=== PATIENT | female | born 1965 | race Caucasian/White ===

== ENCOUNTER 2021-05-17 08:35 | Inpatient (IN) | payer BC, SELFPAY ==
[2021-05-17] VITALS (18 sets, daily range): BP systolic 107–152; BP diastolic 50–92; PULSE 103–118; RESP 13–28; TEMP 36.4–37.1; O2SAT 94–100; BMI 31.4
--- NOTE | ~2021-05-17 | CT_ITS ---
EXAMINATION: CT brain wo con EXAM DATE: 05/18/2021 10:40 INDICATION: Intractable headache. TECHNIQUE: Spiral CT of the head was performed without contrast. Axial, coronal and sagittal images were reviewed. The dose-length product (DLP) for this examination was 605.33 mGy-cm. The exposure w as tailored according to patient size, and iterative reconstruction (ASIR) was used as additional dos e reduction technique. There is no prior study for comparison. FINDINGS: There is no acute intraparenchymal hemorrhage. No evidence of intraparenchymal brain mass lesion. No evidence of acute infarction. There is no mass effect or midline shift. The ventricles are normal in size. There are no extra-axial collections. There are no acute calvarial fractures. T he orbits are unremarkable. Soft tissue is unremarkable. The visualized sinuses and mastoid air travon ls are well aerated. IMPRESSION: 1. Unremarkable head CT examination. Reviewed, dictated and finalized at location B.
--- NOTE | ~2021-05-17 | XR_ITS ---
EXAMINATION: XR chest 1V portable DATE: 05/17/2021 14:58 INDICATION: Diabetic ketoacidosis presenting with shortness of breath, nausea and vomiting TECHNIQUE: frontal view of the chest was obtained. COMPARISON: None FINDINGS: The lungs are clear with no focal airspace opacities, pulmonary edema, pleural effusion or pneumothor ax. The cardiomediastinal silhouette is normal. Visualized bones and soft tissues are unremarkable. IMPRESSION: 1. No acute cardiopulmonary disease. Reviewed, dictated and finalized at location A.
[2021-05-17 08:58] LABS: Basophils Absolute Auto 0.1 K/mm3 (0.0-0.1); Basophils Percent Auto 0.4 % (0.2-1.2); Hematocrit 53.2 % (37.0-47.0); Hemoglobin 16.7 g/dL (12.0-15.0); Immature Granulocyte Absolute 0.09 K/mm3 (0.00-0.031); Immature Granulocyte Percent A 0.6 % (0-0.5); Lymphocytes Absolute Auto 1.03 K/mm3 (0.9-3.2); Lymphocytes Percent Auto 6.8 % (18.3-44.2); Mean Corpuscular HGB Conc 31.4 g/dl (32-36); Mean Corpuscular Hemoglobin 27.5 pg (26-34); Mean Corpuscular Volume 87.6 fl (80-100); Mean Platelet Volume 10.2 fl (7.4-10.4); Monocytes Absolute Auto 0.5 K/mm3 (0.1-0.6); Neutrophils Absolute Auto 13.5 K/mm3 (1.3-6.7); Neutrophils Percent Auto 89.2 % (45.5-73.1); Platelet Count Result 450 k/mm3 (150-375); Red Blood Count 6.07 M/mm3 (4.2-5.4); Red Cell Distribution Width 14.3 % (11.5-14.5); White Blood Count 15.2 K/mm3 (4.5-10.0)
[2021-05-17 09:19] LABS: Alanine Aminotransferase 32 U/L (4-35); Albumin Level 5.3 g/dL (3.5-5.1); Alkaline Phosphatase 151 U/L (38-126); Anion Gap 32 mmol/L (8-16); Aspartate Amino Transferase 31 U/L (14-36); Bilirubin,Total 0.6 mg/dL (0.2-1.3); Blood Urea Nitrogen 17 mg/dL (7-17); Calcium 9.9 mg/dL (8.4-10.2); Carbon Dioxide 6 mmol/L (22-30); Chloride 104 mmol/L (98-107); Estimated CRCL calculation 71 ml/min; Estimated Glomerular Filt Rate > 60; Glucose 210 mg/dL (65-110); Lipase 70 U/L (23-300); Potassium 4.9 mmol/L (3.4-5.0); Sodium 142 mmol/L (137-145)
[2021-05-17] MEDS: SODIUM CHLORIDE 0.9% IV 1,000 ML 999 ML IV CONT (09:25)
[2021-05-17] MEDS: ONDANSETRON INJ 4 MG/2 ML VIAL IV PUSH (09:25)
--- NOTE | 2021-05-17 09:41 | ED.NAVMDI ---
HPI - Nausea/Vomiting/Diarrhea General Chief complaint: Nausea/Vomiting/Diarrhea Stated complaint: Vomiting Time Seen by Provider: 05/17/21 09:03 Source: patient Mode of arrival: ambulatory Limitations: no limitations History of Present Illness HPI Narrative: Patient is a 56-year-old female complaining of nausea vomiting, nonbilious nonbloody, constant, started earlier this morning. Patient states that she cannot keep anything down. Patient denies any chest pain, shortness of breath, abdominal pain, diarrhea, fever, chills or urinary symptoms. Related Data Allergies Allergy/AdvReac Type Severity Reaction Status Date / Time cefprozil Allergy Unknown unknown Verified 05/17/21 08:50 lisinopril Allergy Unknown Cough Verified 05/17/21 08:50 metronidazole Allergy Unknown nausea Verified 05/17/21 08:50 almond AdvReac Abdominal Verified 05/17/21 08:51 Pain losartan AdvReac cough Verified 05/17/21 08:50 METRONIDAZOLE HCL AdvReac Unknown NAUSEA Uncoded 05/16/21 17:46 Review of Systems Review of Systems: All systems reviewed & are unremarkable except as noted in HPI and below Constitutional: Constitutional: Denies body ache(s), Denies chills, Denies excessive sweating, Denies fatigue, Denies fever(s), Denies headache(s), Denies lethargy, Denies malaise, Denies weakness and Denies weight loss Eyes: Eyes: Denies blurry vision, Denies change in vision and Denies loss of vision ENT: Denies dizziness, Denies ear discharge, Denies headache(s), Denies lip swelling, Denies epistaxis, Denies nasal congestion, Denies neck pain, Denies throat swelling and Denies tongue swelling Cardiovascular: Cardiovascular: Denies chest pain, Denies chest pain at rest, Denies chest pain with activity, Denies diaphoresis, Denies rapid heart rate, Denies edema, Denies irregular heart rhythm, Denies lightheadedness, Denies palpitations, Denies dyspnea and Denies dyspnea on exertion Respiratory: Respiratory: Denies chest congestion, Denies cough, Denies hemoptysis, Denies dyspnea and Denies dyspnea on exertion Gastrointestinal: Gastrointestinal: Denies abdominal pain, Denies melena, Denies hematochezia, Denies diarrhea and Denies hematemesis Musculoskeletal: Musculoskeletal: Denies abnormal gait, Denies deformity, Denies joint swelling, Denies limited range of motion, Denies neck pain and Denies numbness Neurologic: Denies Abnormal speech present, Denies abnormal gait, Denies confusion, Denies dizziness, Denies headache(s), Denies focal weakness, Denies loss of vision, Denies numbness, Denies Other visual disturbances, Denies Sensory deficit (Neuro) and Denies weakness Psychiatric: Psychiatric: Denies confusion, Denies depression, Denies auditory hallucinations, Denies homicidal ideation and Denies suicidal ideation Endocrine: Endocrine: Denies cold intolerance, Denies excessive sweating, Denies fatigue, Denies heat intolerance and Denies palpitations Hematologic/Lymphatic: Hematologic/Lymphatic: Denies easy bleeding and Denies easy bruising Allergic/Immunologic: Allergic/Immunologic: Denies lip swelling, Denies throat swelling and Denies tongue swelling PMFSH Family History Family History Mother Patient's mother is Family history of thyroid disease Family history of pancreatic cancer Father Patient's father is Family history of blood dyscrasia Family history of chronic obstructive pulmonary disease Other Diabetes mellitus Family history of malignant neoplasm of thyroid Social History Social History Smoking status: Never smoker Alcohol intake: current Comments Past medical history: Diabetes Social history: Non-smoker no EtOH or drug use Exam Const: General: cooperative, comfortable, well developed, alert and awake; No confusion Nutritional Appearance: obese Orientation/consciousness: oriented to person, oriente
[2021-05-17 10:01] LABS: Add Urine Microscopic? YES; Appearance Urine Clear (Clear); Bilirubin Urine Negative (Negative); Blood Urine 1+ (Negative); Color Urine Straw (Yellow); Glucose Urine UA 3+ mg/dL (Negative); Ketones Urine 2+ mg/dL (Negative); Leukocyte Esterase Ur Negative LEU/UL (Negative); Mucus Urine Rare /lpf; Nitrate Urine Negative (Negative); Protein Urine 2+ mg/dL (Negative); RBC Urine 0-2 /hpf (0-2); Specific Grav Ur 1.024 (1.001-1.035); Squamous Epithelial Cell Urine Rare /hpf (Few); Urobilinogen Urine Negative mg/dL (<2.0); WBC Urine 0-3 /hpf
[2021-05-17 10:14] LABS: Alveolar/Arterial O2 Gradient 25.2 mmHg; Base Excess ABG -22.5 mEq/l (+/-2.0); Carboxyhemoglobin 0.7 % THb (0-2.0); Fractional Inspired Oxygen 21 %; HCO3 ABG 5.3 mEq/l (22.0-26.0); Methemoglobin ABG 0.4 %THb (0-1.5); Oxygen Content ABG 21.4 %vol (16.0-22.0); Oxygen Saturation ABG 95.6 % (95.0-100.0); Oxyhemoglobin 95.2 % THb (90.0-100.0); Reduced Hemoglobin 3.7 %THb (0-5.0); Total Hemoglobin 15.9 g/dL (12.0-18.0)
[2021-05-17] MEDS: PROMETHAZINE HCL 25 MG/ML AMPUL 12.5 MG IV PUSH (10:15)
[2021-05-17 10:19] LABS: pH ABG 7.088 (7.350-7.450)
[2021-05-17 10:20] LABS: Device ROOM AIR; Modified Allen's Test Pass; Site Drawn RIGHT BRACHIAL
[2021-05-17] MEDS: LACTATED RINGERS 1,000 ML 999 ML IV CONT ×2 (10:43→10:59)
--- NOTE | 2021-05-17 12:06 | ECG_ITS ---
Measurements Intervals [place] Rate: 111 P: 59 W[place]: 138 QRS: 14 QRSD: 98 T: 62 QT: 368 QTc: 501 Interpretive Statements SINUS TACHYCARDIA ATRIAL PREMATURE COMPLEX DELAYED PRECORDIAL R/S TRANSITION CONSIDER INFERIOR INFARCT, AGE INDETERMINATE BASELINE ARTIFACT- II, III, AVR, AVF ABNORMAL ECG Electronically Signed On 05-17-2021 13:10:25 CDT by Kuldeep Haro D.O.
[2021-05-17] MEDS: diphenhydrAMINE HCl INJ 50 MG/ML VIAL 25 MG IV PUSH (12:49)
[2021-05-17] MEDS: METOCLOPRAMIDE HCL INJ 10 MG/2 ML VIAL IV PUSH (12:50)
[2021-05-17 13:04] LABS: Glucose Point of Care 188 mg/dl (65-105)
[2021-05-17] MEDS: LACTATED RINGERS 1,000 ML 200 ML IV CONT (13:39)
[2021-05-17 14:33] LABS: Beta-Hydroxybutyrate/Acetoacetate 8.96 mmol/L (0.02-0.27)
[2021-05-17] MEDS: KETOROLAC 15 MG/ML VIAL (*BKC) IV PUSH (15:09)
[2021-05-17] MEDS: INSULIN HUMAN REGULAR (*BKC) 100 UNITS in SODIUM CHLORIDE 0.9% IV 99 ML IV CONT (15:27)
[2021-05-17] MEDS: KCL 20 MEQ/D5/0.45% SOD CHL 1,000 ML 150 ML IV CONT ×2 (15:30→23:25)
[2021-05-17 15:39] LABS: Glucose Point of Care 182 mg/dl (65-105)
--- NOTE | 2021-05-17 16:04 | PM.IMHP ---
H&P: HPI History of Present Illness Date/Time: 05/17/21 16:05 this is a 56-year-old female patient who came to the emergency room with complaint of nausea, vomiting nonbilious nonbloody constant emesis. This started this morning. The patient stated that she is newly diagnosed diabetic and that she recently was given another medication because her blood sugars have been high recently. The patient stated she could not keep anything down. She also complained of headache. No chest pain shortness of breath no diarrhea. The patient stated that she is having hot cold flashes. Her white count was noted to be 15.2. On her ABGs are pH was 7.088, CO2 was 18, PO2 was 103, bicarb 5.3. Her anion gap was reported as 32. Patient's blood glucose was only 210. Patient's last A1c was noted to be 5.4. Her beta hydroxybutyrate was noted to be 8.96. Patient 2+ ketones 3+ glucose 2+ protein and 1+ blood and urine. Patient was also complaining of some lower back pain prior to coming to the emergency room. Patient's chest x-ray was read as no acute cardiopulmonary disease. Cutting And Splicing Supervisor had been notified but the ED physician. The patient was given Benadryl, Phenergan and Reglan for complaints of headache and the patient stated went away briefly but then came back. She was also given Zofran and IV fluids for the nausea as well. Patient was also given Toradol for the complaints of headache and back pain. Chief Complaint: Nausea vomiting elevated blood sugar Review of Systems Review of Systems: All systems reviewed & are unremarkable except as noted in HPI and below Constitutional: Constitutional: Reports as per HPI and Reports no additional constitutional complaints Eyes: Eyes: Reports as per HPI and Reports no additional eye complaints ENT: Reports system reviewed and no additional complaints, except as documented and Reports Normal hearing present Cardiovascular: Cardiovascular: Reports no additional cardiovascular complaints Respiratory: Respiratory: Reports no additional respiratory complaints and Reports no additional respiratory complaints Gastrointestinal: Gastrointestinal: Reports as per HPI and Reports no additional gastrointestinal complaints Musculoskeletal: Musculoskeletal: Reports no additional musculoskeletal complaints Integumentary/Breasts: Skin/Breast: Reports system reviewed and no additional complaints, except as docu and Reports as per HPI Neurologic: Reports system reviewed and no additional complaints, except as documented, Reports as per HPI and Reports Normal hearing present Psychiatric: Psychiatric: Reports no additional psychiatric complaints and Reports as per HPI Endocrine: Endocrine: Reports no additional endocrine complaints Hematologic/Lymphatic: Hematologic/Lymphatic: Reports no additional hematologic/lymphatic complaints Allergic/Immunologic: Allergic/Immunologic: Reports no additional allergic/immunologic complaints [facility] Past Medical History Medical History (Updated 05/17/21 @ 16:13 by Jud Norwood NP) Essential hypertension Hyperlipidemia Type 2 diabetes mellitus without complications eye exam: no diabetic retinopathy Surgical History Surgical History (Updated 05/17/21 @ 16:12 by Jud Norwood NP) History of appendectomy History of section, classical History of lung biopsy Family History Family History Mother Patient's mother is Family history of thyroid disease Family history of pancreatic cancer Father Patient's father is Family history of blood dyscrasia Family history of chronic obstructive pulmonary disease Other Diabetes mellitus Family history of malignant neoplasm of thyroid Social History Social History (Updated 05/17/21 @ 16:16 by Jud Norwood NP) Social History: The patient is and lives with her . The is a durable power director payment for healthcare. The jhony
[2021-05-17 16:28] LABS: Blood Urea Nitrogen 13 mg/dL (7-17); Carbon Dioxide < 5 mmol/L (22-30); Chloride 114 mmol/L (98-107); Estimated CRCL calculation 80 ml/min; Estimated Glomerular Filt Rate > 60; Glucose 209 mg/dL (65-110); Phosphorus 4.4 mg/dL (2.5-4.5); Sodium 141 mmol/L (137-145)
--- NOTE | 2021-05-17 16:45 | ADMGEN ---
This patient, Adeline Camarena, was admitted to Intensive Care Unit-11. Patient/family oriented to hospital policies and general routines including ID bracelet, bed and alarms, visiting hours, pain management, procedures, bathroom and other care routines, personal items, smoking policy, room service/diet, and visiting hours. Information on how to activate the Rapid Response Team has been discussed. Patient/Family are encouraged to report perceived risks to care and to ask questions if they do not understand what they are told or what they should do.
[2021-05-17 17:28] LABS: Blood Urea Nitrogen 13 mg/dL (7-17); Calcium 8.8 mg/dL (8.4-10.2); Carbon Dioxide < 5 mmol/L (22-30); Chloride 114 mmol/L (98-107); Estimated CRCL calculation 81 ml/min; Estimated Glomerular Filt Rate > 60; Glucose 221 mg/dL (65-110); Magnesium 2.1 mg/dL (1.6-2.3); Phosphorus 3.5 mg/dL (2.5-4.5); Sodium 141 mmol/L (137-145)
[2021-05-17 17:30] LABS: Glucose Point of Care 201 mg/dl (65-105)
[2021-05-17 17:30] LABS: Glucose Point of Care 194 mg/dl (65-105)
[2021-05-17 18:03] LABS: Hemoglobin A1C 10.8 % (<5.7)
[2021-05-17 18:34] LABS: Glucose Point of Care 163 mg/dl (65-105)
[2021-05-17 19:41] LABS: Glucose Point of Care 151 mg/dl (65-105)
[2021-05-17 20:23] LABS: Blood Urea Nitrogen 13 mg/dL (7-17); Calcium 8.4 mg/dL (8.4-10.2); Carbon Dioxide < 5 mmol/L (22-30); Chloride 114 mmol/L (98-107); Estimated CRCL calculation 91 ml/min; Estimated Glomerular Filt Rate > 60; Glucose 153 mg/dL (65-110); Potassium 4.7 mmol/L (3.4-5.0); Sodium 143 mmol/L (137-145)
[2021-05-17 20:39] LABS: Glucose Point of Care 146 mg/dl (65-105)
[2021-05-17 21:38] LABS: Glucose Point of Care 140 mg/dl (65-105)
[2021-05-17 22:37] LABS: Glucose Point of Care 149 mg/dl (65-105)
[2021-05-17 23:33] LABS: Anion Gap 16 mmol/L (8-16); Blood Urea Nitrogen 13 mg/dL (7-17); Calcium 9.1 mg/dL (8.4-10.2); Carbon Dioxide 9 mmol/L (22-30); Chloride 114 mmol/L (98-107); Estimated CRCL calculation 91 ml/min; Estimated Glomerular Filt Rate > 60; Glucose 150 mg/dL (65-110); Potassium 4.4 mmol/L (3.4-5.0); Sodium 139 mmol/L (137-145)
[2021-05-17 23:35] LABS: Glucose Point of Care 125 mg/dl (65-105)
[2021-05-17] MEDS: ACETAMINOPHEN 325 MG TABLET 650 MG PO (23:53)
[2021-05-18] VITALS (8 sets, daily range): BP systolic 101–139; BP diastolic 48–91; PULSE 77–96; RESP 14–17; TEMP 36.6–37.1; O2SAT 97–100; BMI 31.0
[2021-05-18 00:02] LABS: Add Urine Microscopic? YES; Appearance Urine Clear (Clear); Bilirubin Urine Negative (Negative); Blood Urine 1+ (Negative); Color Urine Straw (Yellow); Glucose Urine UA 3+ mg/dL (Negative); Ketones Urine 2+ mg/dL (Negative); Leukocyte Esterase Ur Negative LEU/UL (NEGATIVE); Mucus Urine Rare /lpf; Nitrate Urine Negative (Negative); Protein Urine 1+ mg/dL (Negative); RBC Urine 0-2 /hpf (0-2); Specific Grav Ur 1.021 (1.001-1.035); Squamous Epithelial Cell Urine Rare /hpf (Few); Urobilinogen Urine Negative mg/dL (<2.0); WBC Urine 0-3 /hpf (0-3)
[2021-05-18 00:44] LABS: Glucose Point of Care 128 mg/dl (65-105)
[2021-05-18 01:18] LABS: Anion Gap 22 mmol/L (8-16); Blood Urea Nitrogen 13 mg/dL (7-17); Calcium 9.3 mg/dL (8.4-10.2); Carbon Dioxide 10 mmol/L (22-30); Chloride 109 mmol/L (98-107); Estimated CRCL calculation 105 ml/min; Estimated Glomerular Filt Rate > 60; Glucose 147 mg/dL (65-110); Potassium 4.5 mmol/L (3.4-5.0); Sodium 141 mmol/L (137-145)
[2021-05-18 01:41] LABS: Glucose Point of Care 134 mg/dl (65-105)
[2021-05-18 02:52] LABS: Glucose Point of Care 137 mg/dl (65-105)
[2021-05-18 03:24] LABS: Anion Gap 18 mmol/L (8-16); Blood Urea Nitrogen 13 mg/dL (7-17); Calcium 9.1 mg/dL (8.4-10.2); Carbon Dioxide 11 mmol/L (22-30); Chloride 110 mmol/L (98-107); Estimated CRCL calculation 105 ml/min; Estimated Glomerular Filt Rate > 60; Glucose 148 mg/dL (65-110); Potassium 4.4 mmol/L (3.4-5.0); Sodium 139 mmol/L (137-145)
[2021-05-18 04:01] LABS: Hemoglobin A1C 10.8 % (<5.7)
[2021-05-18 04:06] LABS: Glucose Point of Care 139 mg/dl (65-105)
[2021-05-18 05:08] LABS: Glucose Point of Care 131 mg/dl (65-105)
[2021-05-18] MEDS: KCL 20 MEQ/D5/0.45% SOD CHL 1,000 ML 150 ML IV CONT (06:06)
[2021-05-18 06:16] LABS: Glucose Point of Care 128 mg/dl (65-105)
[2021-05-18 07:05] LABS: Basophils Percent Auto 0.1 % (0.2-1.2); Hematocrit 44.2 % (37.0-47.0); Hemoglobin 14.2 g/dL (12.0-15.0); Immature Granulocyte Absolute 0.04 K/mm3 (0.00-0.031); Immature Granulocyte Percent A 0.4 % (0-0.5); Lymphocytes Absolute Auto 1.56 K/mm3 (0.9-3.2); Lymphocytes Percent Auto 16.4 % (18.3-44.2); Mean Corpuscular HGB Conc 32.1 g/dl (32-36); Mean Corpuscular Hemoglobin 27.2 pg (26-34); Mean Corpuscular Volume 84.7 fl (80-100); Mean Platelet Volume 10.1 fl (7.4-10.4); Monocytes Absolute Auto 1.2 K/mm3 (0.1-0.6); Neutrophils Absolute Auto 6.7 K/mm3 (1.3-6.7); Neutrophils Percent Auto 70.1 % (45.5-73.1); Platelet Count Result 302 k/mm3 (150-375); Red Blood Count 5.22 M/mm3 (4.2-5.4); Red Cell Distribution Width 14.6 % (11.5-14.5); White Blood Count 9.5 K/mm3 (4.5-10.0)
[2021-05-18 07:07] LABS: Glucose Point of Care 127 mg/dl (65-105)
[2021-05-18 07:23] LABS: Alanine Aminotransferase 19 U/L (4-35); Alkaline Phosphatase 105 U/L (38-126); Anion Gap 9 mmol/L (8-16); Aspartate Amino Transferase 23 U/L (14-36); Bilirubin,Total 0.8 mg/dL (0.2-1.3); Blood Urea Nitrogen 12 mg/dL (7-17); Calcium 9.1 mg/dL (8.4-10.2); Carbon Dioxide 15 mmol/L (22-30); Chloride 113 mmol/L (98-107); Estimated CRCL calculation 105 ml/min; Estimated Glomerular Filt Rate > 60; Glucose 131 mg/dL (65-110); Magnesium 2.1 mg/dL (1.6-2.3); Sodium 137 mmol/L (137-145)
[2021-05-18 08:21] LABS: Glucose Point of Care 113 mg/dl (65-105)
[2021-05-18] MEDS: ACETAMINOPHEN 325 MG TABLET 650 MG PO ×2 (08:22→12:25)
[2021-05-18] MEDS: INSULIN GLARGINE (*BKC) 100 UNITS/ML 15 UNITS SUB-Q (08:24)
[2021-05-18] MEDS: ENOXAPARIN 40 MG/0.4 ML SYRINGE SUB-Q (08:25)
[2021-05-18 09:27] LABS: Glucose Point of Care 119 mg/dl (65-105)
--- NOTE | 2021-05-18 10:27 | WPDCNINT ---
Assessment and Plan Assessment and plan (1) DKA (diabetic ketoacidosis): Qualifiers: Diabetes mellitus complication detail: without coma Diabetes mellitus type: other specified (including DEBBY) Qualified Code(s): E13.10 - Other specified diabetes mellitus with ketoacidosis without coma Code(s): E11.10 - Type 2 diabetes mellitus with ketoacidosis without coma Status: Acute Assessment and Plan: patient was given IVF bolus on presentation and started on IV fluids she is currently on Insulin infusion and Q1H glucose monitoring Serial labs were done and most recent BMP shows normal anion gap patient's symptoms except headaches have resolved Will transition to SC insulin now Lantus and sliding scale insulin ordered advance diet (2) Headache: Code(s): R51.9 - Headache, unspecified Status: Acute Assessment and Plan: no focal neurological deficit apparent head CT is ordered and pending (3) Hyperlipidemia: Code(s): E78.5 - Hyperlipidemia, unspecified Status: Chronic Assessment and Plan: resume atorvastatin (4) Abdominal pain: Code(s): R10.9 - Unspecified abdominal pain Status: Acute Assessment and Plan: likely secondary to DKA. CT abdomen pelvis ordered and admission but patient's symptoms have completely resolved at this point and abdominal exam is unremarkable. her UA was also negative for any evidence of urinary tract infection. Her renal function, lipase and LFTs are also normal. I will hold getting CT abdomen pelvis at this time and monitor Additional Plan DVT prophylaxis - Lovenox subQ Nutrition - advance to diabetic diet as tolerated Code Status - Full Code Transfer out of ICU today Bridge Crew Member Consult Note Consult date: 05/18/21 Time Seen: 07:15 HPI: Adeline Camarena is a 56 year old female with past medical history of diabetes and hyperlipidemia presented to ER yesterday with chief complaint of abdominal pain and nausea vomiting. symptoms started with nausea vomiting on Saturday. She also had some abdominal pain which was 7 out of 10 severe all over her abdomen, with no radiation, no aggravating or relieving factors. No dysuria no diarrhea no constipation no blood in stool or urine. she did not notice any blood in her vomitus either. unable to keep food down. Headache started 2 days ago. It was 7/10 earlier and 5/10 now. no radiation, achy, intermittent. no weakness in any particular extremities or paresthesia, no loss of conscious she did have blurry vision which has resolved at this time. She also had lightheadedness and dizziness which has also resolved at this time. All other systems were reviewed and were negative Patient was found to be in DKA on presentation to ER. she was given IV fluid bolus and started on IV fluids along with insulin infusion. serial BMPs were ordered and patient was admitted to ICU for further evaluation management Review of Systems Review of Systems: All systems reviewed & are unremarkable except as noted in HPI and below ( HPI) [facility] Past Medical History Medical History Essential hypertension Hyperlipidemia Type 2 diabetes mellitus without complications 8 eye exam: no diabetic retinopathy Surgical History Surgical History History of appendectomy History of section, classical History of lung biopsy Family History Family History Mother Patient's mother is Family history of thyroid disease Family history of pancreatic cancer Father Patient's father is Family history of blood dyscrasia Family history of chronic obstructive pulmonary disease Other Diabetes mellitus Family history of malignant neoplasm of thyroid Social History Social History (Reviewed 05/18/21 @ 10:27 by Del
[2021-05-18 11:53] LABS: Glucose Point of Care 103 mg/dl (65-105)
--- NOTE | 2021-05-18 12:08 | PC.NURSE ---
This patient, Adeline Camarena, was transferred to [[facility]] on 05/18/21 at 1208. Personal belongings sent with patient. Report given to [Mel MELENDEZ]. Appropriate documentation sent with patient. Pt. transferred via wheelchair with RUFINO Foley.
--- NOTE | 2021-05-18 12:21 | PC.NURSE ---
Pt arrived from ICU 11 as Med-Surg Overflow. No complaints, assessment complete.
[2021-05-18 16:46] LABS: Glucose Point of Care 178 mg/dl (65-105)
--- NOTE | 2021-05-18 18:11 | PC.NURSE ---
Pt sitting up in bedside chair and c/o slight dizziness. B/P 138/81
--- NOTE | 2021-05-18 18:40 | PC.NURSE ---
Manager Sterile Processing in room speaking with patient at [phone]
[2021-05-18 21:04] LABS: Glucose Point of Care 155 mg/dl (65-105)
[2021-05-18] MEDS: ATORVASTATIN 40 MG TABLET PO (21:06)
[2021-05-19] VITALS: BP 112/69; PULSE 74; RESP 14; TEMP 36.6; O2SAT 97
[2021-05-19 06:17] LABS: Hematocrit 40.3 % (37.0-47.0); Hemoglobin 13.2 g/dL (12.0-15.0); Mean Corpuscular HGB Conc 32.8 g/dl (32-36); Mean Corpuscular Hemoglobin 27.9 pg (26-34); Mean Corpuscular Volume 85.2 fl (80-100); Mean Platelet Volume 9.6 fl (7.4-10.4); Platelet Count Result 235 k/mm3 (150-375); Red Blood Count 4.73 M/mm3 (4.2-5.4); Red Cell Distribution Width 14.9 % (11.5-14.5); White Blood Count 5.7 K/mm3 (4.5-10.0)
[2021-05-19 06:32] LABS: Alanine Aminotransferase 17 U/L (4-35); Albumin Level 3.5 g/dL (3.5-5.1); Alkaline Phosphatase 90 U/L (38-126); Anion Gap 10 mmol/L (8-16); Aspartate Amino Transferase 19 U/L (14-36); Blood Urea Nitrogen 11 mg/dL (7-17); Calcium 8.9 mg/dL (8.4-10.2); Carbon Dioxide 19 mmol/L (22-30); Chloride 108 mmol/L (98-107); Estimated CRCL calculation 105 ml/min; Estimated Glomerular Filt Rate > 60; Glucose 141 mg/dL (65-110); Magnesium 2.1 mg/dL (1.6-2.3); Potassium 3.6 mmol/L (3.4-5.0); Sodium 137 mmol/L (137-145)
[2021-05-19 08:00] VITALS: BP 121/62; PULSE 81; RESP 16; TEMP 36.3; O2SAT 99
[2021-05-19] MEDS: ENOXAPARIN 40 MG/0.4 ML SYRINGE SUB-Q (08:50)
[2021-05-19] MEDS: INSULIN GLARGINE (*BKC) 100 UNITS/ML 15 UNITS SUB-Q (08:51)
--- NOTE | 2021-05-19 11:22 | PM.DS ---
DS: Admitting Diagnosis Admitting Diagnosis DKA DS: Discharge Diagnosis Discharge Diagnosis (1) Abdominal pain: Code(s): R10.9 - Unspecified abdominal pain Status: Acute Assessment and Plan: likely secondary to DKA. CT abdomen pelvis ordered and admission but patient's symptoms have completely resolved at this point and abdominal exam is unremarkable. her UA was also negative for any evidence of urinary tract infection. Her renal function, lipase and LFTs are also normal. I will hold getting CT abdomen pelvis at this time and monitor (2) Headache: Code(s): R51.9 - Headache, unspecified Status: Acute Assessment and Plan: no focal neurological deficit apparent head CT is unremarkable. (3) Essential hypertension: Code(s): I10 - Essential (primary) hypertension Status: Chronic Assessment and Plan: Management per primary care. Continue home meds. (4) Type 2 diabetes mellitus without complications: Qualifiers: Diabetes mellitus lobsterman insulin use: without nursing home use Qualified Code(s): E11.9 - Type 2 diabetes mellitus without complications Code(s): E11.9 - Type 2 diabetes mellitus without complications Status: Chronic Assessment and Plan: patient was given IVF bolus on presentation and started on IV fluids, Insulin infusion and Q1H glucose monitoring Serial labs were done and most recent BMP shows normal anion gap She stablized overnight and lantus and sliding scale insulin were ordered. She will be discharged on lantus and Janumet. (5) Hyperlipidemia: Code(s): E78.5 - Hyperlipidemia, unspecified Status: Chronic Assessment and Plan: (1) DKA (diabetic ketoacidosis): resume atorvastatin ( (6) Rotator cuff impingement syndrome of right shoulder: Code(s): M75.41 - Impingement syndrome of right shoulder Status: Acute Assessment and Plan: pain management. (7) Mixed hyperlipidemia: Code(s): E78.2 - Mixed hyperlipidemia Status: Acute Assessment and Plan: Resume statin. (8) Iron deficiency anemia: Code(s): D50.9 - Iron deficiency anemia, unspecified Status: Acute Assessment and Plan: Management per primary. Oral iron supplementation. (9) Obesity: Qualifiers: Body mass index: BMI 40.0-44.9 Obesity classification: adult class 3 (BMI >= 40) Obesity type: unspecified obesity type Serious obesity comorbidity presence: with serious comorbidity Qualified Code(s): E66.01 - Morbid (severe) obesity due to excess calories; Z68.41 - Body mass index [BMI]40.0-44.9, adult Code(s): E66.9 - Obesity, unspecified Status: Acute Assessment and Plan: Continue caloric restrictive diet. (10) DKA (diabetic ketoacidosis): Qualifiers: Diabetes mellitus complication detail: without coma Diabetes mellitus type: other specified (including DEBBY) Qualified Code(s): E13.10 - Other specified diabetes mellitus with ketoacidosis without coma Code(s): E11.10 - Type 2 diabetes mellitus with ketoacidosis without coma Status: Acute Assessment and Plan: As above. DS: Summary Hospital Course Hospital Course: This is a 56-year-old female lady who came to the emergency room with complaint of nausea, vomiting nonbilious nonbloody constant emesis. The patient is newly diagnosed diabetic; she lost 75 lbs last year; 3 months ago she went off her keto diet and despite being on the rybeslsus she noticed blood sugars as high as 315. She reports vomiting, headache, blurry vision. She denies chest pain, shortness of breath, abdominal pain, diarrhea, dysuria. In the ED, her white count was noted to be 15.2. On her ABGs are pH was 7.088, CO2 was 18, PO2 was 103, bicarb 5.3. Her anion gap was reported as 32. Patient's blood glucose was only 210. Patient's last A1c was noted to be 5.4. Her beta hydroxybutyrate was n
[2021-05-19 11:31] LABS: Glucose Point of Care 129 mg/dl (65-105)
--- NOTE | 2021-05-19 12:14 | PC.NURSE ---
Pt ready for discharge, but is more comfortable using Lantus pens instead of vials and drawing it up. notified and will change the order.
== END 2021-05-19 12:52 | disposition home or self-care (01) | DRG 639 ==
LOC: ANHED 14:44 → ANHCPC 05-19 10:28 → ANHICU 05-24 15:15
PROVIDERS: Internal Medicine; Nurse Practitioner; Admitting Provider Internal Medicine Nephrology; Emergency Provider Emergency Medicine; PCP Family Medicine; Visit Provider Internal Medicine
DX: E11.10 Type 2 diabetes mellitus with ketoacidosis without coma (principal); E78.2 Mixed hyperlipidemia; I10 Essential (primary) hypertension; R51.9 Headache, unspecified; M75.41 Impingement syndrome of right shoulder; D50.9 Iron deficiency anemia, unspecified; E66.9 Obesity, unspecified; Z68.31 Body mass index [BMI] 31.0-31.9, adult; Z79.84 Long term (current) use of oral hypoglycemic drugs; Z79.899 Other long term (current) drug therapy; Z87.891 Personal history of nicotine dependence
CPT/HCPCS: 36415; 36600; 70450; 71045; 80048; 80053; 81001; 82010; 82375; 82805; 82948; 83036; 83050; 83690; 83735; 84100; 85025; 85027; 93005; 96361; 96374; 96375; 99285; A9270; J1200; J1650; J1815; J1885; J2405; J2550; J2765; J3480; J7030; J7120

== ENCOUNTER 2022-03-13 09:27 | Outpatient (RCR) | payer BC, SELFPAY ==
[2022-03-13] MEDS: diphenhydrAMINE HCl CAP 25 MG CAPSULE PO (10:06)
[2022-03-13] MEDS: FAMOTIDINE 20 MG TABLET PO (10:06)
[2022-03-13] MEDS: ACETAMINOPHEN 325 MG TABLET 650 MG PO (10:07)
[2022-03-13 10:18] VITALS: BP 149/69; PULSE 73; RESP 20; O2SAT 97
[2022-03-13] MEDS: BEBTELOVIMAB 175 MG/2 ML VIAL IV PUSH (10:26)
== END 2022-03-13 16:00 ==
LOC: AMCINF 09:27
PROVIDERS: PCP Physician Assistant; Referring Provider Physician Assistant; Visit Provider Internal Medicine Hematology & Oncology
DX: U07.1 COVID-19 (principal); I10 Essential (primary) hypertension; J45.909 Unspecified asthma, uncomplicated; E11.9 Type 2 diabetes mellitus without complications
CPT/HCPCS: A9270; M0222; Q0222

== ENCOUNTER 2022-06-22 09:18 | Outpatient (RCR) | payer BC, SELFPAY | END 2022-09-11 08:25 | disposition home or self-care (01) | LOC: ANHDMC 09:18 | PROVIDERS: PCP Physician Assistant; Visit Provider Internal Medicine Endocrinology, Diabetes & Metabolism | DX: E11.65 Type 2 diabetes mellitus with hyperglycemia (principal); Z71.89 Other specified counseling | CPT/HCPCS: G0108 ==

== ENCOUNTER 2022-09-27 08:56 | Outpatient (RCR) | payer BC, SELFPAY | END 2022-12-24 10:26 | disposition home or self-care (01) | LOC: ANHDMC 08:56 | PROVIDERS: PCP Family Medicine; Visit Provider Internal Medicine Endocrinology, Diabetes & Metabolism | DX: E11.65 Type 2 diabetes mellitus with hyperglycemia (principal); Z71.89 Other specified counseling | CPT/HCPCS: G0108 ==